=== PATIENT | female | born 1990 | race Two or more races ===

== ENCOUNTER 2024-09-02 02:35 | Inpatient (IN) | payer OTHER ==
[~2024-09-02] VITALS: Ht 157.5 cm; Wt 76.3 kg
[2024-09-02] MEDS ORDERED: FLUC150T61 PO (02:44)
[2024-09-02] MEDS ORDERED: GABA-1201 PO (02:44)
[2024-09-02 03:38] LABS: BASOPHILS % (AUTO) 0.4 % (0.0-2.0); EOSINOPHILS % (AUTO) 0.6 % (1.0-6.0); HEMATOCRIT 41.6 % (36-46); HEMOGLOBIN 13.8 g/dL (12.0-16.0); LYMPHOCYTES # (AUTO) 3.2 K/uL (1.0-4.8); LYMPHOCYTES % (AUTO) 29.7 % (22.0-44.0); MEAN CORPUSCULAR HEMOGLOBIN 29.5 pg (26.0-34.0); MEAN CORPUSCULAR HGB CONC 33.1 G/dL (31.0-37.0); MEAN CORPUSCULAR VOLUME 89 fL (80-100); MONOCYTES # (AUTO) 0.8 K/uL (0.1-1.0); MONOCYTES % (AUTO) 7.6 % (2.0-9.0); NEUTROPHILS # (AUTO) 6.6 K/uL (1.8-7.7); NEUTROPHILS % (AUTO) 61.7 % (40.0-70.0); PLATELET COUNT (AUTO) 363 K/uL (150-450); RED BLOOD CELL COUNT(AUTO) 4.68 MIL/uL (4.00-5.20); RED CELL DISTRIBUTION WIDTH 15.5 % (11.5-14.5); WHITE BLOOD COUNT (AUTO) 10.7 K/uL (4.5-11.0)
[2024-09-02 03:46] LABS: APPEARANCE,URINE HAZY (CLEAR); BILIRUBIN,URINE NEGATIVE (NEGATIVE); COLOR,URINE YELLOW (YELLOW); GLUCOSE, URINE (UA) NEGATIVE (NEGATIVE); KETONES,URINE NEGATIVE (NEGATIVE); LEUKOCYTE ESTERASE ,URINE SMALL (NEGATIVE); NITRATE,URINE NEGATIVE (NEGATIVE); OCCULT BLOOD,URINE NEGATIVE (NEGATIVE); PH,URINE 5.5 (5.0-8.0); PROTEIN,URINE 30-70 mg/dL (NEGATIVE); SPECIFIC GRAVITIY, URINE 1.032 (1.003-1.030); UROBILINOGEN,URINE <=1.0 mg/dL (<=1.0)
[2024-09-02 03:48] LABS: ANION GAP 5 mmol/L (8-16); CALCIUM, TOTAL 8.9 mg/dL (8.8-10.5); CARBON DIOXIDE 31 mmol/L (22-29); CHLORIDE 105 mmol/L (98-107); CREATININE 0.78 mg/dL (0.60-1.30); GLOMERULAR FILTR. RATE CALC > 60 mL/min (>60); GLUCOSE,RANDOM 93 mg/dL (70-110); POTASSIUM 3.6 mmol/L (3.5-5.1); SODIUM SERUM 141 mmol/L (136-145); UREA NITROGEN, BLOOD 21 mg/dL (7-18)
[2024-09-02 03:49] LABS: BACTERIA,URINE None Seen /HPF (None Seen); RBC,URINE None Seen /HPF (0-2); SQUAMOUS EPITHELIAL CELL,UR Few /LPF (None Seen)
[2024-09-02] MEDS: ONDANSETRON HCL 4 MG/2 ML VIAL IVP ONE (04:34)
[2024-09-02 04:45] LABS: COVID AG,FIA SOURCE NASAL SWAB
[2024-09-02] MEDS: HYDROmorphone HCL 2 MG/ML SYRINGE IVP ONE ×2 (04:49→07:48)
[2024-09-02] MEDS: ACETAMINOPHEN 325 MG TABLET PO ONE (04:49)
[2024-09-02 05:01] LABS: SARS-COV2 (COVID) ANTIGEN,FIA Negative (Negative)
[2024-09-02] MEDS ORDERED: MethylPREDNISolone SOD SUCC 125 MG/2 ML VIAL IVP ONE (05:15)
[2024-09-02 05:30] VITALS: BP 105/56; PULSE 82; RESP 20; TEMP 98.2; O2SAT 99
[2024-09-02] MEDS ORDERED: SODIUM CHLORIDE 0.9% 250 ML IV ONE ×2 (05:52→16:01)
[2024-09-02] MEDS ORDERED: CefTRIAXone 1 GM/DEXTROSE 50 ML IV SCH (06:00)
[2024-09-02] MEDS: MethylPREDNISolone SOD SUCC 1,000 MG in SODIUM CHLORIDE 0.9% 50 ML IV ONE (06:02)
[2024-09-02] MEDS: DOCUSATE SODIUM 100 MG CAPSULE PO SCH (07:47)
[2024-09-02] MEDS: HEPARIN SODIUM,PORCINE 5,000 UNITS/ML VIAL SQ SCH (08:00)
[2024-09-02] MEDS: ACETAMINOPHEN 325 MG TABLET PO PRN (11:29)
[2024-09-02] MEDS: HYDROmorphone HCL 2 MG/ML SYRINGE IVP PRN (13:46)
[2024-09-02] MEDS: FLUCONAZOLE 200 MG TABLET PO ONE (16:04)
[2024-09-02] MEDS: GABAPENTIN 400 MG CAPSULE PO SCH (16:05)
[2024-09-02] MEDS: MethylPREDNISolone SOD SUCC 1,000 MG in SODIUM CHLORIDE 0.9% 50 ML IV SCH (16:05)
[2024-09-02 16:13] VITALS: BP 116/63; PULSE 98; RESP 20; TEMP 98.2; O2SAT 98
[2024-09-02] MEDS: ONDANSETRON HCL 4 MG/2 ML VIAL IVP PRN (18:19)
[2024-09-02 19:32] VITALS: BP 123/68; PULSE 101; RESP 18; TEMP 98.9; O2SAT 96
[2024-09-02] MEDS: ACETAMINOPHEN 500 MG TABLET PO SCH (20:30)
[2024-09-03 05:27] VITALS: BP 116/70; PULSE 86; RESP 18; TEMP 97.9; O2SAT 97
[2024-09-03 07:41] LABS: ANION GAP 10 mmol/L (8-16); CALCIUM, TOTAL 8.8 mg/dL (8.8-10.5); CARBON DIOXIDE 26 mmol/L (22-29); CHLORIDE 103 mmol/L (98-107); CREATININE 0.64 mg/dL (0.60-1.30); GLOMERULAR FILTR. RATE CALC > 60 mL/min (>60); GLUCOSE,RANDOM 160 mg/dL (70-110); POTASSIUM 3.7 mmol/L (3.5-5.1); SODIUM SERUM 139 mmol/L (136-145); UREA NITROGEN, BLOOD 16 mg/dL (7-18)
[2024-09-03 07:51] LABS: BASOPHILS % (AUTO) 0.1 % (0.0-2.0); EOSINOPHILS % (AUTO) 0 % (1.0-6.0); HEMATOCRIT 39.3 % (36-46); HEMOGLOBIN 13.3 g/dL (12.0-16.0); LYMPHOCYTES # (AUTO) 0.3 K/uL (1.0-4.8); LYMPHOCYTES % (AUTO) 1.7 % (22.0-44.0); MEAN CORPUSCULAR HEMOGLOBIN 29.9 pg (26.0-34.0); MEAN CORPUSCULAR HGB CONC 33.9 G/dL (31.0-37.0); MEAN CORPUSCULAR VOLUME 88 fL (80-100); MONOCYTES # (AUTO) 0.2 K/uL (0.1-1.0); MONOCYTES % (AUTO) 1.4 % (2.0-9.0); NEUTROPHILS # (AUTO) 15.1 K/uL (1.8-7.7); PLATELET COUNT (AUTO) 345 K/uL (150-450); RED BLOOD CELL COUNT(AUTO) 4.45 MIL/uL (4.00-5.20); RED CELL DISTRIBUTION WIDTH 15.1 % (11.5-14.5); WHITE BLOOD COUNT (AUTO) 15.6 K/uL (4.5-11.0)
[2024-09-03 07:52] LABS: NEUTROPHILS % (AUTO) 96.8 % (40.0-70.0)
[2024-09-03] MEDS: HYDROmorphone HCL 2 MG/ML SYRINGE IVP PRN (13:24)
[2024-09-03 19:28] VITALS: BP 117/83; PULSE 82; RESP 18; TEMP 98.3; O2SAT 98
[2024-09-04 05:13] VITALS: BP 122/70; PULSE 89; RESP 18; TEMP 98.3; O2SAT 99
[2024-09-04 08:00] VITALS: BP 112/86; PULSE 81; RESP 18; TEMP 98.2; O2SAT 100
[2024-09-04 21:33] VITALS: BP 121/67; PULSE 70; RESP 17; TEMP 98.2; O2SAT 98
[2024-09-05 06:20] VITALS: BP 124/73; PULSE 88; RESP 18; TEMP 98.1; O2SAT 97
[2024-09-05 08:10] VITALS: BP 112/71; PULSE 73; RESP 18; TEMP 98.4; O2SAT 97
[2024-09-05] MEDS ORDERED: ACET-2123 PO (17:11)
[2024-09-06] MEDS ORDERED: TRAM50TA5 PO (13:42)
[2024-09-06] MEDS ORDERED: FLUC200T85 PO (13:42)
[2024-09-06] MEDS ORDERED: ERGO500093 PO (13:42)
[2024-09-06] MEDS ORDERED: FLUT1BLS9 IH (13:42)
== END 2024-09-05 13:30 | disposition home or self-care (01) | DRG 59 ==
LOC: EMS 02:45 → EDH 05:06 → 4E 05:25
PROVIDERS: ADMIT Internal Medicine; ATTEND Internal Medicine
DX: G35 Multiple sclerosis (principal); B38.0 Acute pulmonary coccidioidomycosis; G81.94 Hemiplegia, unspecified affecting left nondominant side; Z20.822 Contact with and (suspected) exposure to COVID-19; E86.0 Dehydration; R79.89 Other specified abnormal findings of blood chemistry; G62.9 Polyneuropathy, unspecified; M21.372 Foot drop, left foot; Z88.2 Allergy status to sulfonamides; Z88.5 Allergy status to narcotic agent
CPT/HCPCS: 70553; 71045; 72156; 80048; 81001; 83735; 84703; 85025; 96374; 96375; 97116; 97161; 97165; 97530; 97535; 99285; G0378; J0696; J1171; J1644; J2405; J2919; J7050; 36415-L1; 36415-TC

== ENCOUNTER 2024-09-06 00:36 | Inpatient (IN) | payer OTHER ==
[~2024-09-06] VITALS: Ht 157.5 cm; Wt 72.7 kg
[~2024-09-06 00:36] MED LIST: ACET-2123 PO; FLUC150T61 PO; GABA-1201 PO
[2024-09-06] MEDS ORDERED: MethylPREDNISolone SOD SUCC 1,000 MG in SODIUM CHLORIDE 0.9% 50 ML IV ONE (01:15)
[2024-09-06 01:43] LABS: BASOPHILS % (AUTO) 0.1 % (0.0-2.0); EOSINOPHILS % (AUTO) 0.1 % (1.0-6.0); HEMATOCRIT 37.6 % (36-46); HEMOGLOBIN 12.5 g/dL (12.0-16.0); LYMPHOCYTES # (AUTO) 1.5 K/uL (1.0-4.8); LYMPHOCYTES % (AUTO) 11.2 % (22.0-44.0); MEAN CORPUSCULAR HEMOGLOBIN 29.5 pg (26.0-34.0); MEAN CORPUSCULAR HGB CONC 33.1 G/dL (31.0-37.0); MEAN CORPUSCULAR VOLUME 89 fL (80-100); MONOCYTES # (AUTO) 0.9 K/uL (0.1-1.0); NEUTROPHILS # (AUTO) 10.8 K/uL (1.8-7.7); NEUTROPHILS % (AUTO) 81.6 % (40.0-70.0); PLATELET COUNT (AUTO) 307 K/uL (150-450); RED BLOOD CELL COUNT(AUTO) 4.23 MIL/uL (4.00-5.20); WHITE BLOOD COUNT (AUTO) 13.2 K/uL (4.5-11.0)
[2024-09-06 01:53] LABS: ANION GAP 4 mmol/L (8-16); CALCIUM, TOTAL 8.4 mg/dL (8.8-10.5); CARBON DIOXIDE 33 mmol/L (22-29); CHLORIDE 104 mmol/L (98-107); CREATININE 0.46 mg/dL (0.60-1.30); GLOMERULAR FILTR. RATE CALC > 60 mL/min (>60); GLUCOSE,RANDOM 94 mg/dL (70-110); SODIUM SERUM 141 mmol/L (136-145); UREA NITROGEN, BLOOD 22 mg/dL (7-18)
[2024-09-06] MEDS: SODIUM CHLORIDE 0.9% 1,000 ML IV ONE (02:24)
[2024-09-06] MEDS: ONDANSETRON HCL 4 MG/2 ML VIAL IVP ONE (02:25)
[2024-09-06] MEDS: HYDROmorphone HCL 2 MG/ML SYRINGE IVP ONE ×3 (02:26→11:38)
[2024-09-06] MEDS: HEPARIN SODIUM,PORCINE 5,000 UNITS/ML VIAL SQ SCH (08:00)
[2024-09-06] MEDS: FAMOTIDINE 20 MG TABLET PO SCH (09:06)
[2024-09-06] MEDS: DOCUSATE SODIUM 100 MG CAPSULE PO SCH (09:06)
[2024-09-06] MEDS: ACETAMINOPHEN 325 MG TABLET PO PRN (09:07)
[2024-09-06 09:16] VITALS: BP 128/83; PULSE 68; RESP 18; TEMP 98.5; O2SAT 97
[2024-09-06] MEDS: ONDANSETRON HCL 4 MG/2 ML VIAL IVP PRN (10:26)
[2024-09-06] MEDS ORDERED: FLUC200T85 PO (13:42)
[2024-09-06] MEDS ORDERED: TRAM50TA5 PO (13:42)
[2024-09-06] MEDS ORDERED: FLUT1BLS9 IH (13:42)
[2024-09-06] MEDS ORDERED: ERGO500093 PO (13:42)
[2024-09-06] MEDS: MethylPREDNISolone SOD SUCC 125 MG/2 ML VIAL IVP ONE (13:43)
[2024-09-06] MEDS: HYDROmorphone HCL 2 MG/ML SYRINGE IVP PRN (13:44)
[2024-09-06] MEDS: MethylPREDNISolone SOD SUCC 125 MG/2 ML VIAL IVP SCH (18:02)
[2024-09-06 20:20] VITALS: BP 122/72; PULSE 83; RESP 18; TEMP 98.5; O2SAT 97
[2024-09-07 03:55] VITALS: BP 122/69; PULSE 77; RESP 18; TEMP 98.3; O2SAT 98
[2024-09-07 08:36] VITALS: BP 119/81; PULSE 75; RESP 18; TEMP 98; O2SAT 96
[2024-09-07] MEDS ORDERED: MethylPREDNISolone SOD SUCC 125 MG/2 ML VIAL IVP SCH ×2 (09:00)
[2024-09-07 16:14] VITALS: BP 131/76; PULSE 92; RESP 18; TEMP 98.4; O2SAT 96
[2024-09-07 20:27] VITALS: BP 125/86; PULSE 78; RESP 18; TEMP 98.3; O2SAT 97
[2024-09-08] MEDS: ZOLPIDEM TARTRATE 5 MG TABLET PO PRN
[2024-09-08 05:56] VITALS: BP 123/73; PULSE 75; RESP 18; TEMP 98.2; O2SAT 96
[2024-09-08 10:10] VITALS: BP 121/71; PULSE 71; RESP 18; TEMP 98.2; O2SAT 97
[2024-09-08] MEDS: GABAPENTIN 300 MG CAPSULE PO SCH (11:15)
[2024-09-08] MEDS ORDERED: GABA-1181 PO (11:24)
[2024-09-08] MEDS ORDERED: PRED-729 PO (11:27)
[2024-09-08] MEDS ORDERED: PANT-31 PO (11:30)
[2024-09-08] MEDS ORDERED: HYDR2TAB37 PO (11:30)
[2024-09-08] MEDS ORDERED: GABAPENTIN 300 MG CAPSULE PO SCH (12:00)
[2024-09-08] MEDS: PANTOPRAZOLE SODIUM 40 MG DR TABLET PO SCH (12:41)
[2024-09-08 15:06] VITALS: BP 112/60; PULSE 66; RESP 18; TEMP 98.1; O2SAT 99
[2024-09-08 20:19] VITALS: BP 133/84; PULSE 60; RESP 20; TEMP 98; O2SAT 100
[2024-09-09 06:31] VITALS: BP 120/78; PULSE 65; RESP 19; TEMP 98.2; O2SAT 99
[2024-09-09 07:50] VITALS: BP 109/75; PULSE 71; RESP 18; TEMP 97.7; O2SAT 99
[2024-09-09] MEDS ORDERED: PROM50S PR (10:46)
[2024-09-09] MEDS: TraMADol HCL 50 MG TABLET PO PRN (11:08)
[2024-09-09] MEDS: PredniSONE 20 MG TABLET PO SCH (11:11)
[2024-09-09 12:08] LABS: BASOPHILS % (AUTO) 0.4 % (0.0-2.0); EOSINOPHILS % (AUTO) 0.4 % (1.0-6.0); HEMATOCRIT 37.6 % (36-46); HEMOGLOBIN 12.7 g/dL (12.0-16.0); LYMPHOCYTES # (AUTO) 2.1 K/uL (1.0-4.8); LYMPHOCYTES % (AUTO) 19.2 % (22.0-44.0); MEAN CORPUSCULAR HGB CONC 33.7 G/dL (31.0-37.0); MEAN CORPUSCULAR VOLUME 89 fL (80-100); MONOCYTES # (AUTO) 0.9 K/uL (0.1-1.0); NEUTROPHILS # (AUTO) 7.9 K/uL (1.8-7.7); PLATELET COUNT (AUTO) 310 K/uL (150-450); RED BLOOD CELL COUNT(AUTO) 4.22 MIL/uL (4.00-5.20); RED CELL DISTRIBUTION WIDTH 15.3 % (11.5-14.5); WHITE BLOOD COUNT (AUTO) 10.9 K/uL (4.5-11.0)
[2024-09-09 12:17] LABS: ANION GAP 1 mmol/L (8-16); CALCIUM, TOTAL 7.9 mg/dL (8.8-10.5); CARBON DIOXIDE 35 mmol/L (22-29); CHLORIDE 103 mmol/L (98-107); CREATININE 0.52 mg/dL (0.60-1.30); GLOMERULAR FILTR. RATE CALC > 60 mL/min (>60); GLUCOSE,RANDOM 97 mg/dL (70-110); POTASSIUM 3.1 mmol/L (3.5-5.1); SODIUM SERUM 139 mmol/L (136-145); UREA NITROGEN, BLOOD 18 mg/dL (7-18)
[2024-09-09 12:18] LABS: LIPASE 38 U/L (16-77)
[2024-09-09] MEDS: POTASSIUM CHLORIDE 20 MEQ ER TABLET PO ONE (12:57)
[2024-09-10] MEDS ORDERED: FAMO20 PO (03:56)
== END 2024-09-09 16:53 | disposition home or self-care (01) | DRG 59 ==
LOC: EMS 00:36 → EDH 05:41 → 6S 08:53
PROVIDERS: ADMIT Internal Medicine; ATTEND Internal Medicine
DX: G35 Multiple sclerosis (principal); D68.2 Hereditary deficiency of other clotting factors; G93.89 Other specified disorders of brain; G62.9 Polyneuropathy, unspecified; Z88.2 Allergy status to sulfonamides; Z88.5 Allergy status to narcotic agent; Z88.8 Allergy status to other drugs, medicaments and biological substances; Z90.49 Acquired absence of other specified parts of digestive tract; Z79.899 Other long term (current) drug therapy
CPT/HCPCS: 76700; 80048; 83690; 84703; 85025; 96361; 96374; 96375; 96376; 97161; 99285; J1171; J1644; J2405; J2919; J7030; J7050; 36415-L1; 36415-TC

== ENCOUNTER 2024-09-09 23:32 | Emergency (ER) | payer OTHER ==
[~2024-09-09] VITALS: Ht 157.5 cm; Wt 78.6 kg
[~2024-09-09 23:32] MED LIST changes: +ERGO500093 PO; -FLUC150T61 PO; +FLUC200T85 PO; +FLUT1BLS9 IH; +GABA-1181 PO; -GABA-1201 PO; +HYDR2TAB37 PO; +PANT-31 PO; +PRED-729 PO; +PROM50S PR; +TRAM50TA5 PO
[2024-09-09 23:41] VITALS: TEMP 99
[2024-09-10 00:28] LABS: APPEARANCE,URINE CLEAR (CLEAR); BILIRUBIN,URINE NEGATIVE (NEGATIVE); COLOR,URINE LIGHT YELLOW (YELLOW); GLUCOSE, URINE (UA) NEGATIVE (NEGATIVE); KETONES,URINE NEGATIVE (NEGATIVE); LEUKOCYTE ESTERASE ,URINE NEGATIVE (NEGATIVE); NITRATE,URINE NEGATIVE (NEGATIVE); OCCULT BLOOD,URINE NEGATIVE (NEGATIVE); PROTEIN,URINE NEGATIVE (NEGATIVE); UROBILINOGEN,URINE <=1.0 mg/dL (<=1.0)
[2024-09-10 00:31] LABS: BASOPHILS % (AUTO) 0.1 % (0.0-2.0); EOSINOPHILS % (AUTO) 0 % (1.0-6.0); HEMATOCRIT 43.8 % (36-46); HEMOGLOBIN 14.7 g/dL (12.0-16.0); LYMPHOCYTES # (AUTO) 0.5 K/uL (1.0-4.8); LYMPHOCYTES % (AUTO) 3.2 % (22.0-44.0); MEAN CORPUSCULAR HEMOGLOBIN 29.9 pg (26.0-34.0); MEAN CORPUSCULAR HGB CONC 33.5 G/dL (31.0-37.0); MEAN CORPUSCULAR VOLUME 89 fL (80-100); MONOCYTES # (AUTO) 0.7 K/uL (0.1-1.0); NEUTROPHILS # (AUTO) 13.5 K/uL (1.8-7.7); PLATELET COUNT (AUTO) 403 K/uL (150-450); RED BLOOD CELL COUNT(AUTO) 4.92 MIL/uL (4.00-5.20); RED CELL DISTRIBUTION WIDTH 15.6 % (11.5-14.5); WHITE BLOOD COUNT (AUTO) 14.7 K/uL (4.5-11.0)
[2024-09-10 00:35] LABS: NEUTROPHILS % (AUTO) 91.7 % (40.0-70.0)
[2024-09-10 00:42] LABS: ANION GAP 7 mmol/L (8-16); CALCIUM, TOTAL 8.3 mg/dL (8.8-10.5); CARBON DIOXIDE 28 mmol/L (22-29); CHLORIDE 104 mmol/L (98-107); CREATININE 0.53 mg/dL (0.60-1.30); GLOMERULAR FILTR. RATE CALC > 60 mL/min (>60); GLUCOSE,RANDOM 133 mg/dL (70-110); POTASSIUM 3.8 mmol/L (3.5-5.1); SODIUM SERUM 139 mmol/L (136-145); UREA NITROGEN, BLOOD 16 mg/dL (7-18)
[2024-09-10 00:52] LABS: AMYLASE 60 U/L (25-115); HCG,QUANTITATIVE < 1 mIU/mL (0-6); LIPASE 68 U/L (16-77)
[2024-09-10] MEDS: ONDANSETRON HCL 4 MG/2 ML VIAL IVP ONE (01:19)
[2024-09-10] MEDS: FAMOTIDINE 20 MG/2 ML VIAL IVP ONE (01:19)
[2024-09-10] MEDS: SODIUM CHLORIDE 0.9% 1,000 ML IV ONE (01:19)
[2024-09-10 01:42] LABS: LACTIC ACID 1.7 mmol/L (0.4-2.0)
[2024-09-10 02:00] LABS: ALBUMIN 3.3 g/dL (3.4-5.0); BILIRUBIN,DIRECT 0.1 mg/dL (0.00-0.20); BILIRUBIN,TOTAL 0.3 mg/dL (0.1-1.0); TOTAL PROTEIN, SERUM 6.4 g/dL (6.4-8.2)
[2024-09-10] MEDS: HYDROmorphone HCL 2 MG/ML SYRINGE IVP ONE (02:40)
[2024-09-10] MEDS ORDERED: FAMO20 PO (03:56)
[2024-09-10 04:01] VITALS: BP 118/75; PULSE 77; RESP 16; O2SAT 98
== END 2024-09-10 04:02 | disposition home or self-care (01) ==
LOC: EMS 23:34
DX: K29.70 Gastritis, unspecified, without bleeding (principal); Z88.2 Allergy status to sulfonamides; Z88.5 Allergy status to narcotic agent; Z79.51 Long term (current) use of inhaled steroids; Z79.52 Long term (current) use of systemic steroids; Z90.49 Acquired absence of other specified parts of digestive tract; Z79.899 Other long term (current) drug therapy
CPT/HCPCS: 99285; 80048; 80076; 81003; 82150; 83605; 83690; 84702; 84703; 85025; 87040; 74176; 96374; 96375; 71045; 96361; 36415; J1171; J3490; J2405; J7030

== ENCOUNTER 2024-10-31 03:47 | Inpatient (IN) | payer OTHER ==
[~2024-10-31] VITALS: Ht 157.5 cm; Wt 76.4 kg
[~2024-10-31 03:47] MED LIST changes: +FAMO20 PO
[2024-10-31] MEDS: SODIUM CHLORIDE 0.9% 1,000 ML IV ONE ×2 (06:04→06:05)
[2024-10-31] MEDS: ONDANSETRON HCL 4 MG/2 ML VIAL IVP ONE (06:04)
[2024-10-31] MEDS: HYDROmorphone HCL 2 MG/ML SYRINGE IVP ONE ×2 (06:05→09:15)
[2024-10-31 06:06] LABS: BASOPHILS % (AUTO) 0.4 % (0.0-2.0); EOSINOPHILS % (AUTO) 1.5 % (1.0-6.0); HEMATOCRIT 41.7 % (36-46); HEMOGLOBIN 14.1 g/dL (12.0-16.0); LYMPHOCYTES # (AUTO) 1.5 K/uL (1.0-4.8); LYMPHOCYTES % (AUTO) 21.6 % (22.0-44.0); MEAN CORPUSCULAR HEMOGLOBIN 29.6 pg (26.0-34.0); MEAN CORPUSCULAR HGB CONC 33.7 G/dL (31.0-37.0); MEAN CORPUSCULAR VOLUME 88 fL (80-100); MONOCYTES # (AUTO) 0.5 K/uL (0.1-1.0); MONOCYTES % (AUTO) 6.8 % (2.0-9.0); NEUTROPHILS # (AUTO) 4.8 K/uL (1.8-7.7); NEUTROPHILS % (AUTO) 69.7 % (40.0-70.0); PLATELET COUNT (AUTO) 322 K/uL (150-450); RED BLOOD CELL COUNT(AUTO) 4.75 MIL/uL (4.00-5.20); RED CELL DISTRIBUTION WIDTH 14.5 % (11.5-14.5); WHITE BLOOD COUNT (AUTO) 6.9 K/uL (4.5-11.0)
[2024-10-31 06:12] LABS: ANION GAP 7 mmol/L (8-16); CALCIUM, TOTAL 8.7 mg/dL (8.8-10.5); CARBON DIOXIDE 30 mmol/L (22-29); CHLORIDE 105 mmol/L (98-107); CREATININE 0.58 mg/dL (0.60-1.30); GLOMERULAR FILTR. RATE CALC > 60 mL/min (>60); GLUCOSE,RANDOM 88 mg/dL (70-110); POTASSIUM 3.9 mmol/L (3.5-5.1); SODIUM SERUM 142 mmol/L (136-145); UREA NITROGEN, BLOOD 11 mg/dL (7-18)
[2024-10-31 06:13] LABS: C-REACTIVE PROTEIN QUANT 0.06 mg/dL (0.00-0.30); LIPASE 33 U/L (16-77)
[2024-10-31 06:22] LABS: LACTIC ACID 1.7 mmol/L (0.4-2.0)
[2024-10-31] MEDS: MethylPREDNISolone SOD SUCC 125 MG/2 ML VIAL IVP ONE (07:32)
[2024-10-31] MEDS ORDERED: ACETAMINOPHEN 325 MG TABLET PO PRN (08:45)
[2024-10-31] MEDS: ONDANSETRON HCL 4 MG/2 ML VIAL IVP PRN ×2 (09:19→13:32)
[2024-10-31 10:10] VITALS: BP 115/69; PULSE 76; RESP 20; TEMP 97.3; O2SAT 98
[2024-10-31] MEDS: MethylPREDNISolone SOD SUCC 500 MG in SODIUM CHLORIDE 0.9% 50 ML IV SCH (13:05)
[2024-10-31] MEDS: HYDROmorphone HCL 2 MG/ML SYRINGE IVP PRN (13:33)
[2024-10-31] MEDS: HEPARIN SODIUM,PORCINE 5,000 UNITS/ML VIAL SQ SCH (16:00)
[2024-10-31 16:47] VITALS: BP 93/78; PULSE 80; RESP 18; TEMP 97.9; O2SAT 98
[2024-10-31 19:33] VITALS: BP 111/72; PULSE 90; RESP 18; TEMP 98.4; O2SAT 98
[2024-11-01 02:55] VITALS: BP 107/65; PULSE 90; RESP 16; TEMP 97.8; O2SAT 100
[2024-11-01] MEDS: HYDROmorphone HCL 2 MG/ML SYRINGE IVP PRN ×2 (06:04→16:14)
[2024-11-01] MEDS: ONDANSETRON HCL 4 MG/2 ML VIAL IVP PRN (06:04)
[2024-11-01 08:07] VITALS: BP 105/63; PULSE 89; RESP 18; TEMP 98.1; O2SAT 100
[2024-11-01 11:03] LABS: ANION GAP 10 mmol/L (8-16); CALCIUM, TOTAL 8.5 mg/dL (8.8-10.5); CARBON DIOXIDE 26 mmol/L (22-29); CHLORIDE 108 mmol/L (98-107); CREATININE 0.81 mg/dL (0.60-1.30); GLOMERULAR FILTR. RATE CALC > 60 mL/min (>60); GLUCOSE,RANDOM 124 mg/dL (70-110); POTASSIUM 3.8 mmol/L (3.5-5.1); SODIUM SERUM 144 mmol/L (136-145); UREA NITROGEN, BLOOD 9 mg/dL (7-18)
[2024-11-01 11:08] LABS: BASOPHILS % (AUTO) 0.1 % (0.0-2.0); EOSINOPHILS % (AUTO) 0 % (1.0-6.0); HEMATOCRIT 38.8 % (36-46); LYMPHOCYTES # (AUTO) 1.2 K/uL (1.0-4.8); LYMPHOCYTES % (AUTO) 7.1 % (22.0-44.0); MEAN CORPUSCULAR HGB CONC 33.5 G/dL (31.0-37.0); MEAN CORPUSCULAR VOLUME 87 fL (80-100); MONOCYTES % (AUTO) 5.8 % (2.0-9.0); NEUTROPHILS # (AUTO) 14.6 K/uL (1.8-7.7); PLATELET COUNT (AUTO) 338 K/uL (150-450); RED BLOOD CELL COUNT(AUTO) 4.48 MIL/uL (4.00-5.20); RED CELL DISTRIBUTION WIDTH 14.4 % (11.5-14.5); WHITE BLOOD COUNT (AUTO) 16.8 K/uL (4.5-11.0)
[2024-11-01] MEDS ORDERED: NALOXONE HCL 0.4 MG/ML VIAL IVP PRN (12:30)
[2024-11-01 15:57] VITALS: BP 110/67; PULSE 96; RESP 18; TEMP 99; O2SAT 100
[2024-11-01] MEDS: MethylPREDNISolone SOD SUCC 125 MG/2 ML VIAL IVP SCH (16:19)
[2024-11-01] MEDS: GABAPENTIN 300 MG CAPSULE PO SCH (17:01)
[2024-11-01 19:54] VITALS: BP 121/79; PULSE 100; RESP 20; TEMP 98.4; O2SAT 98
[2024-11-01] MEDS: FLUTICASONE/SALMETEROL 250-50 MCG/INH INHALER [60] IH SCH (19:59)
[2024-11-02 06:39] VITALS: BP 103/67; PULSE 81; RESP 18; TEMP 98.2; O2SAT 98
[2024-11-02 07:09] LABS: BASOPHILS % (AUTO) 0.1 % (0.0-2.0); EOSINOPHILS % (AUTO) 0 % (1.0-6.0); HEMATOCRIT 40.1 % (36-46); HEMOGLOBIN 13.6 g/dL (12.0-16.0); LYMPHOCYTES # (AUTO) 0.9 K/uL (1.0-4.8); MEAN CORPUSCULAR HEMOGLOBIN 29.3 pg (26.0-34.0); MEAN CORPUSCULAR HGB CONC 33.8 G/dL (31.0-37.0); MEAN CORPUSCULAR VOLUME 87 fL (80-100); MONOCYTES # (AUTO) 0.3 K/uL (0.1-1.0); MONOCYTES % (AUTO) 1.9 % (2.0-9.0); NEUTROPHILS # (AUTO) 14.4 K/uL (1.8-7.7); PLATELET COUNT (AUTO) 338 K/uL (150-450); RED BLOOD CELL COUNT(AUTO) 4.62 MIL/uL (4.00-5.20); RED CELL DISTRIBUTION WIDTH 14.5 % (11.5-14.5); WHITE BLOOD COUNT (AUTO) 15.7 K/uL (4.5-11.0)
[2024-11-02 07:20] LABS: CARBON DIOXIDE 27 mmol/L (22-29); CHLORIDE 109 mmol/L (98-107); POTASSIUM 3.6 mmol/L (3.5-5.1); SODIUM SERUM 144 mmol/L (136-145)
[2024-11-02 07:21] LABS: ANION GAP 8 mmol/L (8-16); CALCIUM, TOTAL 8.6 mg/dL (8.8-10.5); CREATININE 0.58 mg/dL (0.60-1.30); GLOMERULAR FILTR. RATE CALC > 60 mL/min (>60); GLUCOSE,RANDOM 126 mg/dL (70-110); UREA NITROGEN, BLOOD 15 mg/dL (7-18)
[2024-11-02 08:58] VITALS: BP 119/73; PULSE 84; RESP 18; TEMP 98.4; O2SAT 98
[2024-11-02] MEDS: PANTOPRAZOLE SODIUM 40 MG DR TABLET PO SCH (09:42)
[2024-11-02] MEDS ORDERED: TRAM50TA5 PO (14:02)
[2024-11-02 15:36] VITALS: BP 114/72; PULSE 86; RESP 18; TEMP 97.7; O2SAT 95
[2024-11-08] MEDS ORDERED: ERGOCALCIFEROL (VIT D2) 50,000 UNITS [1,250 MCG] CAPSULE PO SCH (09:00)
== END 2024-11-02 20:50 | disposition home or self-care (01) | DRG 59 ==
LOC: EMS 03:47 → EDH 09:18 → 4E 10:00
PROVIDERS: ADMIT Internal Medicine; ATTEND Internal Medicine
DX: G35 Multiple sclerosis (principal); E87.3 Alkalosis; G62.9 Polyneuropathy, unspecified; R25.1 Tremor, unspecified; Z79.899 Other long term (current) drug therapy; Z88.2 Allergy status to sulfonamides; Z88.5 Allergy status to narcotic agent; Z88.8 Allergy status to other drugs, medicaments and biological substances; Z90.49 Acquired absence of other specified parts of digestive tract
CPT/HCPCS: 80048; 83605; 83690; 83735; 84703; 85025; 86140; 99285; G0378; J1171; J2405; J2919; J3535; J7030; J7050

== ENCOUNTER 2024-12-23 20:30 | Emergency (ER) | payer OTHER ==
[~2024-12-23] VITALS: Ht 157.5 cm; Wt 72.7 kg
[~2024-12-23 20:30] MED LIST changes: -FLUC200T85 PO; -PRED-729 PO
[2024-12-23 20:37] VITALS: TEMP 98.6
[2024-12-23 21:31] LABS: BASOPHILS % (AUTO) 0.2 % (0.0-2.0); HEMATOCRIT 40.7 % (36-46); HEMOGLOBIN 13.6 g/dL (12.0-16.0); LYMPHOCYTES # (AUTO) 2.4 K/uL (1.0-4.8); LYMPHOCYTES % (AUTO) 25.4 % (22.0-44.0); MEAN CORPUSCULAR HGB CONC 33.4 G/dL (31.0-37.0); MEAN CORPUSCULAR VOLUME 87 fL (80-100); MONOCYTES # (AUTO) 0.7 K/uL (0.1-1.0); MONOCYTES % (AUTO) 7.1 % (2.0-9.0); NEUTROPHILS # (AUTO) 6.1 K/uL (1.8-7.7); NEUTROPHILS % (AUTO) 65.3 % (40.0-70.0); PLATELET COUNT (AUTO) 315 K/uL (150-450); RED BLOOD CELL COUNT(AUTO) 4.69 MIL/uL (4.00-5.20); RED CELL DISTRIBUTION WIDTH 13.4 % (11.5-14.5); WHITE BLOOD COUNT (AUTO) 9.4 K/uL (4.5-11.0)
[2024-12-23 21:46] LABS: ANION GAP 4 mmol/L (8-16); CALCIUM, TOTAL 8.3 mg/dL (8.8-10.5); CARBON DIOXIDE 28 mmol/L (22-29); CHLORIDE 107 mmol/L (98-107); CREATININE 0.63 mg/dL (0.60-1.30); GLOMERULAR FILTR. RATE CALC > 60 mL/min (>60); GLUCOSE,RANDOM 92 mg/dL (70-110); POTASSIUM 3.4 mmol/L (3.5-5.1); SODIUM SERUM 139 mmol/L (136-145); UREA NITROGEN, BLOOD 17 mg/dL (7-18)
[2024-12-23 22:28] LABS: APPEARANCE,URINE CLEAR (CLEAR); BILIRUBIN,URINE NEGATIVE (NEGATIVE); COLOR,URINE LIGHT YELLOW (YELLOW); GLUCOSE, URINE (UA) NEGATIVE (NEGATIVE); KETONES,URINE NEGATIVE (NEGATIVE); LEUKOCYTE ESTERASE ,URINE TRACE (NEGATIVE); NITRATE,URINE NEGATIVE (NEGATIVE); OCCULT BLOOD,URINE NEGATIVE (NEGATIVE); PROTEIN,URINE NEGATIVE (NEGATIVE); SPECIFIC GRAVITIY, URINE 1.025 (1.003-1.030); UROBILINOGEN,URINE <=1.0 mg/dL (<=1.0)
[2024-12-23 22:49] LABS: RBC,URINE 0-2 /HPF (0-2)
[2024-12-23 22:51] LABS: BACTERIA,URINE Few /HPF (None Seen); SQUAMOUS EPITHELIAL CELL,UR Few /LPF (None Seen)
[2024-12-24] MEDS: KETOROLAC TROMETHAMINE 30 MG/ML VIAL IM ONE (02:17)
[2024-12-24] MEDS: HYDROCODONE/ACETAMINOPHEN 5-325 MG TABLET PO ONE (02:17)
[2024-12-24] MEDS: haloperidoL 5 MG TABLET PO ONE (03:42)
[2024-12-24] MEDS: DiphenhydrAMINE HCL 25 MG CAPSULE PO ONE (03:42)
[2024-12-24 03:52] VITALS: BP 121/76; PULSE 90; RESP 16; O2SAT 98
== END 2024-12-24 03:56 | disposition home or self-care (01) ==
LOC: EMS 20:30
DX: R53.1 Weakness (principal); Z90.49 Acquired absence of other specified parts of digestive tract; Z98.890 Other specified postprocedural states; Z88.5 Allergy status to narcotic agent; Z88.2 Allergy status to sulfonamides; Z79.51 Long term (current) use of inhaled steroids; Z79.899 Other long term (current) drug therapy
CPT/HCPCS: 99284; 80048; 81001; 84702; 85025; 36415; 96372; J1885